=== PATIENT | male | born 1955 | race Caucasian/White ===

== ENCOUNTER 2022-04-25 06:18 | Day surgery (SDC) | payer OTHER ==
[~2022-04-25] VITALS: Ht 177.8 cm; Wt 113.4 kg
[2022-04-25] MEDS ORDERED: MIDAZOLAM HCL 5 MG/5 ML VIAL ONE (09:24)
[2022-04-25] MEDS ORDERED: MEPERIDINE 100 MG INJ. 100 MG/ML VIAL ONE (09:24)
[2022-04-25 15:13] VITALS: BP_SYST 114
== END 2022-04-25 10:25 | disposition home or self-care (01) ==
LOC: SDS 06:18 → SMU 06:19 → SDS 10:25
PROVIDERS: ATTEND Internal Medicine Gastroenterology
DX: Z12.11 Encounter for screening for malignant neoplasm of colon (principal); D12.3 Benign neoplasm of transverse colon; K64.8 Other hemorrhoids; Z85.038 Personal history of other malignant neoplasm of large intestine; Z86.010 Personal history of colon polyps; Z79.899 Other long term (current) drug therapy; Z20.822 Contact with and (suspected) exposure to COVID-19
CPT/HCPCS: 36415; 45380; 45385; 82962; 88305; 99152; U0003; G0378; J2250; J2175